=== PATIENT | male | born 1970 | race Caucasian/White ===

== ENCOUNTER 2023-08-05 12:19 | Emergency (ER) | payer OTHER, MEDICAID ==
[~2023-08-05] VITALS: Ht 170.2 cm; Wt 73.9 kg
[2023-08-05 12:47] VITALS: BP 120/74; PULSE 81; RESP 18; TEMP 98.2; O2SAT 97
== END 2023-08-05 14:27 | disposition home or self-care (01) ==
LOC: MED 12:19
DX: M19.072 Primary osteoarthritis, left ankle and foot (principal)
CPT/HCPCS: 73610; 73630; 99284